=== PATIENT | male | born 1955 | race Caucasian/White ===

== ENCOUNTER 2018-08-29 09:45 | Outpatient (CLI) | payer OTHER ==
--- NOTE | 2018-08-30 09:34 | RAD ---
LEFT FOOT TWO VIEWS: History: Foot pain. FINDINGS: Small enthesophytes in the posterior calculus with insertion at the Achilles. Tarsals unremarkable. M ild DJD at the first MTP joint. MTP joints otherwise unremarkable. Minimal degenerative changes in th e intertarsal joints with minimal spurring seen dorsally at the talonavicular. IMPRESSION: Mild degenerative changes as described. POS: [facility]
--- NOTE | 2018-08-30 09:34 | RAD ---
RIGHT FOOT TWO VIEWS: History: Foot pain. FINDINGS: Tarsals, metatarsals, and phalanges appear unremarkable on this two view study. Very mild DJD at the first MTP joint. The other MTP joints are unremarkable. Tiny enthesophytes in the posterior calcaneus . Minimal degenerative changes in the inner tarsal joints. IMPRESSION: Mild degenerative changes as described. POS: [facility]
== END 2018-08-29 09:46 | disposition home or self-care (01) ==
LOC: BURRAD 09:45
PROVIDERS: ATTEND Family Medicine
DX: M79.671 Pain in right foot (principal); M19.072 Primary osteoarthritis, left ankle and foot; M19.071 Primary osteoarthritis, right ankle and foot